=== PATIENT | female | born 1970 | race African-American/Black ===

== ENCOUNTER 2018-06-10 08:12 | Emergency (ER) | payer BC ==
[2018-06-10] MEDS ORDERED: MORPHINE 2 MG/ML SYR ONE (08:54)
[2018-06-10] MEDS ORDERED: ONDANSETRON 4 MG/2 ML VIAL ONE (08:54)
--- NOTE | 2018-06-10 10:11 | RAD REPORT ---
EXAM DESCRIPTION: RAD - Wrist Right 2 View - 06/10/2018 9:57 am CLINICAL HISTORY: Fall, wrist pain, visual deformity COMPARISON: None. FINDINGS: An oblique, comminuted fracture traverses the distal radius. Fracture plane extends from t he lateral metaphysis obliquely to the medial articular surface. There is impaction along the dorsal margin. Approximately 30 degree dorsal angulation deformity is present as well. There is dorsal displ acement 1/2 shaft width. No ulna fracture confirmed. No carpal bone fracture. Carpal bones maintain normal positioning to the radial articular surface. No pathologic changes. No foreign body. IMPRESSION: Comminuted distal right radius fracture as detailed.
[2018-06-10] MEDS ORDERED: MORPHINE 4 MG/ML SYR ONE ×3 (11:11→13:53)
[2018-06-10] MEDS ORDERED: BUPIVACAINE 0.5% PF 10 ML VIAL ONE (11:11)
--- NOTE | 2018-06-10 13:19 | RAD REPORT ---
EXAM DESCRIPTION: RAD - Wrist Right 3 View - 06/10/2018 1:05 pm CLINICAL HISTORY: repeat Fracture, pain COMPARISON: Wrist Right 2 View dated 06/10/2018 FINDINGS: Comminuted distal radius fracture is again noted with moderate soft tissue swelling. Kelly le change in fracture alignment seen on the most recent radiograph compared to the prior study.
--- NOTE | 2018-06-10 13:31 | ER ---
Nurse's Notes [facility] Name: Rosanna Dhillon Age: 48 yrs Sex: Female : 1970 Arrival Date: 06/10/2018 Time: 08:16 Bed 15 Private MD: Diagnosis: Colles' fracture of right radius Presentation: 06/10 08:28 Presenting complaint: Right wrist pain after mechanical fall from standing 30 mins [employer]. hb Transition of care: patient was not received from another setting of care. Onset of symptoms was June 10, 2018. Risk Assessment: Do you want to hurt yourself or someone else? Patient reports no desire to harm self or others. Initial Sepsis Screen: Does the patient meet any 2 criteria? No. Patient's initial sepsis screen is negative. Does the patient have a suspected source of infection? No. Patient's initial sepsis screen is negative. Care prior to arrival: None. 08:28 Method Of Arrival: Ambulatory hb 08:28 Acuity: KRUPA 4 hb Historical: - Allergies: 08:34 No Known Allergies; hb - Home Meds: 08:34 None [Active]; hb - PMHx: 08:34 None; hb - PSHx: 08:34 None; hb - Immunization history:: Adult Immunizations up to date. - Social history:: Smoking status: Patient/guardian denies using tobacco. - Ebola Screening: : No symptoms or risks identified at this time. Screenin:34 Abuse screen: Denies threats or abuse. Denies injuries from another. Nutritional hb screening: No deficits noted. Tuberculosis screening: No symptoms or risk factors identified. Fall Risk None identified. Assessment: 08:30 General: Appears in no apparent distress. uncomfortable, well groomed, Behavior is ph calm, cooperative, appropriate for age. Pain: Complains of pain in right wrist. Neuro: Level of Consciousness is awake, alert, obeys commands, Oriented to person, place, time, situation. Cardiovascular: Capillary refill < 3 seconds in bilateral fingers Patient's skin is warm and dry. Pulses are palpable in right radial artery and left radial artery. Respiratory: Airway is patent Respiratory effort is even, unlabored. GI: No signs and/or symptoms were reported involving the gastrointestinal system. Derm: Skin is intact, is healthy with good turgor, Skin is pink, warm \T\ dry. Musculoskeletal: Circulation, motion, and sensation intact. Range of motion: limited in right wrist Bony deformity noted of right wrist Swelling present in right wrist. 09:30 Reassessment: Patient appears in no apparent distress at this time. Patient and/or ph family updated on plan of care and expected duration. Pain level reassessed. Patient is alert, oriented x 3, equal unlabored respirations, skin warm/dry/pink. 10:30 Reassessment: Patient appears in no apparent distress at this time. Patient and/or ph family updated on plan of care and expected duration. Pain level reassessed. Patient is alert, oriented x 3, equal unlabored respirations, skin warm/dry/pink. 11:35 Reassessment: Pt placed in traction, reports that pain has decreased. ph 13:00 Reassessment: Patient appears in no apparent distress at this time. Patient and/or ph family updated on plan of care and expected duration. Pain level reassessed. Patient is alert, oriented x 3, equal unlabored respirations, skin warm/dry/pink. Pt remains in traction, awaiting results of post-reduction xray. 14:00 Reassessment: Patient appears in no apparent distress at this time. Patient and/or ph family updated on plan of care and expected duration. Pain level reassessed. Patient is alert, oriented x 3, equal unlabored respirations, skin warm/dry/pink. Pt instructed to follow up w/ Dr Best and d/c home w/ daughter. Vital Signs: 08:29 BP 154 / 88; Pulse 88; Resp 16; Temp 98.1; Pulse Ox 100% on R/A; Pain 10/10; hb ED Course: 08:16 Patient arrived in ED. as 08:22 Mark Solomon PA is PHCP. jmm 08:22 Brent Singleton MD is Attending Physician. jm 08:29 Triage completed. hb 08:29 Arm band placed on. hb 08:38 Irina Abbott, STEPHANIE is Primary Nurse. ph 08:50 Inserted saline lock: 24 gauge in left hand, using aseptic technique. ph 09:10 Patient has correct armband on for positive identification. Bed in low position. Call ph light in reach. Side rails up X 1. Pulse ox on. NIBP on. Door closed. Noise minimized. Warm blanket given. Ice pack to injury. 09:52 X-ray completed. Portable x-ray completed in exam room. Patient tolerated procedure sw well. 09:55 Wrist Right 2 View In Process Unspecified. EDMS 13:06 Wrist Right 3 View XRAY In Process Unspecified. EDMS 13:29 Eldon Best MD is Referral Physician. marques 13:30 Assist provider with fracture care of right wrist Fracture is closed. Obvious deformity ph is noted. Circulation, motor and sensation is intact. Set up for procedure. Performed by Mark ZHANG Reduced with traction. Immobilized with OCL splint, Post immobilization, circulation, motor and sensation remain intact. Patient tolerated well. 13:43 Orthoglass splint: Sugar tong splint applied on right arm. Radial pulse present and jb1 within normal limits before and after application of splint. Capillary refill was two seconds before and after application of splint. Sling applied to right arm. 14:00 IV discontinued, intact, bleeding controlled, No redness/swelling at site. Pressure ph dressing applied. Administered Medications: 08:58 Drug: Zofran 4 mg Route: IVP; Site: left hand; ph 09:30 Follow up: Response: No adverse reaction ph 09:00 Drug: morphine 2 mg Route: IVP; Site: left hand; ph 09:30 Follow up: Response: No adverse reaction ph 11:07 Drug: morphine 4 mg Route: IVP; Site: left hand; ph 11:30 Follow up: Response: No adverse reaction ph 11:08 Drug: Marcaine (0.5 %) 10 ml Volume: 10 ml; Route: Infiltration; ph 12:00 Follow up: Response: No adverse reaction; Pain is decreased ph 12:40 Drug: morphine 4 mg Route: IVP; Site: left hand; ph 13:00 Follow up: Response: No adverse reaction; Pain is decreased ph 13:43 Drug: morphine 4 mg Route: IVP; Site: left hand; ph 14:00 Follow up: Response: No adverse reaction ph 14:02 Drug: Zofran 4 mg Route: PO; ph 14:06 Follow up: Response: No adverse reaction; Medication administered at discharge. ph Outcome: 13:30 Discharge ordered by . [facility] 14:03 Patient left the ED. ph 14:03 Discharged to home via wheelchair, with family. ph 14:03 Condition: improved 14:03 Discharge instructions given to patient, Instructed on discharge instructions, follow up and referral plans. medication usage, Demonstrated understanding of instructions, follow-up care, medications, Prescriptions given X 1. Signatures: Dispatcher [employer] Shivam Carlisle1 Mark Solomon PA PA jmm Martinez, Amelia as Hall, Patricia, RN RN Kena Singh Heather, RN RN Corrections: (The following items were deleted from the chart) 11:07 11:07 morphine 4 mg IVP in left antecubital ph ph
--- NOTE | 2018-06-10 13:31 | EDPHYS ---
Physician Documentation [facility] Name: Rosanna Dhillon Age: 48 yrs Sex: Female : 1970 Arrival Date: 06/10/2018 Time: 08:16 Bed 15 Private MD: ED Physician Brent Singleton HPI: 06/10 08:40 This 48 yrs old Black Female presents to ER via Ambulatory with complaints of Wrist jmm Injury. 08:40 The patient or guardian reports injury, pain. Onset: The symptoms/episode jmm began/occurred acutely, today. Modifying factors: The symptoms are alleviated by holding still, the symptoms are aggravated by movement. Associated signs and symptoms: Pertinent negatives: numbness distally, tingling distally. This is a 48 year old female with no chronic medical conditions that presents to the ED with complaints of right wrist pain after slipping and falling. Patient denies other injury. . Historical: - Allergies: 08:34 No Known Allergies; hb - Home Meds: 08:34 None [Active]; hb - PMHx: 08:34 None; hb - PSHx: 08:34 None; hb - Immunization history:: Adult Immunizations up to date. - Social history:: Smoking status: Patient/guardian denies using tobacco. - Ebola Screening: : No symptoms or risks identified at this time. ROS: 08:40 Constitutional: Negative for fever, chills, and weight loss, Cardiovascular: Negative jmm for chest pain, palpitations, and edema, Respiratory: Negative for shortness of breath, cough, wheezing, and pleuritic chest pain. 08:40 MS/extremity: Positive for injury or acute deformity, pain. 08:40 All other systems are negative. Exam: 08:40 Constitutional: This is a well developed, well nourished patient who is awake, alert, jmm and in no acute distress. Head/Face: atraumatic. Eyes: EOMI, no conjunctival erythema appreciated ENT: Moist Mucus Membranes Neck: Trachea midline, Supple Chest/axilla: Normal chest wall appearance and motion. Cardiovascular: Regular rate and rhythm. No edema appreciated Respiratory: Normal respirations, no respiratory distress appreciated Back: Normal ROM Skin: General appearance color normal 08:40 Musculoskeletal/extremity: deformity noted to the distal ulna and radius, full radial pulse, sensation intact to distal extremities, compartments are soft, NVI.. 08:40 Skin: Appearance: Color: normal in color. 08:40 Neuro: Orientation: is normal, Mentation: is normal, Memory: is normal. 08:40 Psych: Behavior/mood is pleasant, cooperative. Vital Signs: 08:29 BP 154 / 88; Pulse 88; Resp 16; Temp 98.1; Pulse Ox 100% on R/A; Pain 10/10; hb Procedures: 13:28 Reduction: of the right wrist, using traction, manipulation, Immobilized with lisbeth urena. Patient tolerated well. Post reduction film - reveals improved alignment. MDM: 08:30 Patient medically screened. [facility] 13:28 Data reviewed: vital signs, nurses notes. Counseling: I had a detailed discussion with elma the patient and/or guardian regarding: the historical points, exam findings, and any diagnostic results supporting the discharge/admit diagnosis, radiology results, the need for outpatient follow up, to return to the emergency department if symptoms worsen or persist or if there are any questions or concerns that arise at home. 13:28 ED course: I discussed the patient with Dr. Loaiza whom will follow up with the patient [facility] in clinic. Patient given compartment syndrome return precautions. . 06/10 09:55 Order name: Wrist Right 2 View; Complete Time: 10:13 [facility] 06/10 12:46 Order name: Wrist Right 3 View XRAY; Complete Time: 13:23 [facility] 06/10 08:35 Order name: Saline Lock; Complete Time: 09:02 [facility] 06/10 10:15 Order name: Misc. Order: finger strap, traction; Complete Time: 11:55 [facility] 06/10 11:31 Order name: Sugar Tong Forearm Splint; Complete Time: 13:43 [facility] Administered Medications: 08:58 Drug: Zofran 4 mg Route: IVP; Site: left hand; ph 09:30 Follow up: Response: No adverse reaction ph 09:00 Drug: morphine 2 mg Route: IVP; Site: left hand; ph 09:30 Follow up: Response: No adverse reaction ph 11:07 Drug: morphine 4 mg Route: IVP; Site: left hand; ph 11:30 Follow up: Response: No adverse reaction ph 11:08 Drug: Marcaine (0.5 %) 10 ml Volume: 10 ml; Route: Infiltration; ph 12:00 Follow up: Response: No adverse reaction; Pain is decreased ph 12:40 Drug: morphine 4 mg Route: IVP; Site: left hand; ph 13:00 Follow up: Response: No adverse reaction; Pain is decreased ph 13:43 Drug: morphine 4 mg Route: IVP; Site: left hand; ph 14:00 Follow up: Response: No adverse reaction ph 14:02 Drug: Zofran 4 mg Route: PO; ph 14:06 Follow up: Response: No adverse reaction; Medication administered at discharge. ph Disposition: 15:23 Co-signature as Attending Physician, Brent Singleton MD I agree with the assessment and kdr plan of care. Disposition: 06/10/18 13:30 Discharged to Home. Impression: Colles' fracture of right radius. - Condition is Stable. - Discharge Instructions: Radial Fracture. - Prescriptions for Tylenol- Codeine #3 300-30 mg Oral Tablet - take 1 tablet by ORAL route every 6 hours As needed; 20 tablet. - Medication Reconciliation Form, Thank You Letter, Antibiotic Education, Prescription Opioid Use, Work release form form. - Follow up: Eldon Loaiza MD; When: 2 - 3 days; Reason: Recheck today's complaints, Continuance of care, Re-evaluation by your physician. Signatures: Dispatcher [employer] EDMD Brent Singleton MD MD kdr Mickail, Joel, PA PA [facility] Irina Abbott RN RN Rebecca Barros RN RN Corrections: (The following items were deleted from the chart) 09:55 08:36 Wrist Right 3 View+[email or web address] ordered. [facility] 13:42 10:20 Conscious Sedation ordered. [facility] 14:03 13:30 06/10/2018 13:30 Discharged to Home. Impression: Colles' fracture of right ph radius. Condition is Stable. Forms are Medication Reconciliation Form, Thank You Letter, Antibiotic Education, Prescription Opioid Use. Follow up: Dr. Eldon Loaiza; When: 2 - 3 days; Reason: Recheck today's complaints, Continuance of care, Re-evaluation by your physician. [facility] 16:31 13:28 ED course: I discussed the patient with Dr. Loaiza whom will follow up with the [facility] patient in clinic. . [facility]
[2018-06-10] MEDS ORDERED: ONDANSETRON 4 MG (ODT) TAB ONE (14:08)
== END 2018-06-10 14:03 | disposition home or self-care (01) ==
LOC: ER 08:12
PROC: 0PSHXZZ Reposition Right Radius, External Approach (ICD-10-PCS; principal; 2018-06-10)
DX: S52.531A Colles' fracture of right radius, initial encounter for closed fracture (principal); W01.0XXA Fall on same level from slipping, tripping and stumbling without subsequent striking against object, initial encounter; Y93.9 Activity, unspecified; Y92.9 Unspecified place or not applicable
CPT/HCPCS: 96374; 96375; 99284; J2270; J2405